=== PATIENT | male | born 1980 | race Caucasian/White ===

== ENCOUNTER 2023-02-03 22:06 | Inpatient (IN) | payer MEDICARE ==
[~2023-02-03] VITALS: Ht 167.6 cm; Wt 65.8 kg
[~2023-02-03 22:06] MED LIST: CELEBREX100 MG PO; METHOCARBAMOL500 MG PO; NAPROSYN500 MG PO
[2023-02-04] VITALS (12 sets, daily range): BP systolic 160–179; BP diastolic 80–108; PULSE 101–110; RESP 18–21; TEMP 98–98.2; O2SAT 98–100
[2023-02-04 00:07] LABS: BASOPHILS # (AUTO) 0.1 (0.0-0.1); BASOPHILS % 0.7 % (0.0-1.0); EOSINOPHILS # (AUTO) 0.3 (0.0-0.4); EOSINOPHILS % 2.6 % (0.0-6.0); HEMATOCRIT 32.8 % (38.2-49.6); HEMOGLOBIN 10.8 g/dL (14.0-18.0); LYMPHOCYTES # (AUTO) 1.8 (1.0-3.2); LYMPHOCYTES % 15.2 % (18.0-39.1); MEAN CORPUSCULAR HEMOGLOBIN 30.4 pg (28-32); MEAN CORPUSCULAR HGB CONC 32.9 g/dL (31-35); MEAN CORPUSCULAR VOLUME 92.4 fL (81-99); MONOCYTES % 8.3 % (4.4-11.3); NEUTROPHILS # (AUTO) 8.4 (2.1-6.9); NEUTROPHILS % 71.5 % (38.7-80.0); PLATELET COUNT 268 x10e3/uL (140-360); RED BLOOD COUNT 3.55 x10e6/uL (4.3-5.7); RED CELL DISTRIBUTION WIDTH 13.2 % (11.7-14.4)
[2023-02-04 00:21] LABS: ANION GAP 18.2 mmol/L (8-16); CALCIUM 12.2 mg/dL (8.4-10.2); CREATININE, SERUM 0.87 mg/dL (0.72-1.25); POTASSIUM 3.2 mmol/L (3.5-5.1)
[2023-02-04] MEDS ORDERED: ONDANSETRON HCL INJ 2MG/ML 2ML 2 MG/ML VIAL IV STA (00:44)
[2023-02-04] MEDS ORDERED: Morphine 4mg INJECTION 4 MG/ML INJ IV ONE (00:45)
[2023-02-04] MEDS: SODIUM CHLORIDE 0.9% 1000ML 1,000 ML IV SCH ×3 (00:55→13:14)
[2023-02-04 06:28] LABS: BASOPHILS # (AUTO) 0.1 (0.0-0.1); BASOPHILS % 0.7 % (0.0-1.0); EOSINOPHILS # (AUTO) 0.3 (0.0-0.4); EOSINOPHILS % 2.4 % (0.0-6.0); HEMOGLOBIN 10.2 g/dL (14.0-18.0); MEAN CORPUSCULAR HEMOGLOBIN 30.5 pg (28-32); MEAN CORPUSCULAR HGB CONC 32.9 g/dL (31-35); MEAN CORPUSCULAR VOLUME 92.8 fL (81-99); MONOCYTES # (AUTO) 0.9 (0.2-0.8); MONOCYTES % 8.4 % (4.4-11.3); NEUTROPHILS # (AUTO) 7.6 (2.1-6.9); PLATELET COUNT 251 x10e3/uL (140-360); RED BLOOD COUNT 3.34 x10e6/uL (4.3-5.7); RED CELL DISTRIBUTION WIDTH 13.2 % (11.7-14.4)
[2023-02-04 06:55] LABS: CALCIUM 11.4 mg/dL (8.4-10.2); CREATININE, SERUM 0.83 mg/dL (0.72-1.25)
[2023-02-04] MEDS ORDERED: DIPHENHYDRAMINE HCL INJ 50 MG/ML VIAL IV PRN (09:45)
[2023-02-04] MEDS ORDERED: ONDANSETRON HCL INJ 2MG/ML 2ML 2 MG/ML VIAL IV PRN (09:45)
[2023-02-04] MEDS ORDERED: DOCUSATE SODIUM 100 MG CAP PO PRN (09:45)
[2023-02-04] MEDS: ACETAMINOPHEN 325 MG TAB PO PRN (10:06)
[2023-02-04] MEDS: POTASSIUM CHLORIDE 20 MEQ TAB CR PO PRN (10:07)
[2023-02-04] MEDS ORDERED: BISACODYL 10 MG SUPP PR ONE (10:30)
[2023-02-04] MEDS ORDERED: LACTULOSE SYRUP 20 GM/30 ML UDC PO ONE (10:30)
[2023-02-04] MEDS: KETOROLAC TROMETHAMINE 30 MG/ML VIAL IV PRN (14:20)
[2023-02-04] MEDS: HYDRALAZINE HCL 20 MG/ML VIAL IV PRN (17:08)
[2023-02-04] MEDS ORDERED: CITRATE OF MAGNESIA 300ML BOTTLE PO ONE (17:15)
[2023-02-04] MEDS: METOPROLOL TARTRATE INJ 1 MG/ML VIAL IV PRN (22:55)
[2023-02-05] VITALS (8 sets, daily range): BP systolic 118–178; BP diastolic 88–104; PULSE 76–106; RESP 17–21; TEMP 97.9–99.2; O2SAT 96–100
[2023-02-05] MEDS: SODIUM CHLORIDE 0.9% 1000ML 1,000 ML IV SCH ×3 (01:12→16:15)
[2023-02-05] MEDS: METOPROLOL TARTRATE INJ 1 MG/ML VIAL IV PRN (06:00)
[2023-02-05] MEDS ORDERED: ONDANSETRON HCL 4 MG ORAL DISINTEGRATING TAB PO PRN (12:45)
[2023-02-05] MEDS ORDERED: CITRATE OF MAGNESIA 300ML BOTTLE PO ONE (16:00)
[2023-02-05] MEDS: KETOROLAC TROMETHAMINE 30 MG/ML VIAL IV PRN ×3 (16:16→22:24)
[2023-02-05] MEDS: CLONIDINE HCL 0.1 MG TAB PO PRN (20:46)
[2023-02-05] MEDS: ACETAMINOPHEN 325 MG TAB PO PRN (21:03)
[2023-02-05] MEDS ORDERED: MINERAL OIL 132 ML BTL PR ONE (21:30)
[2023-02-05] MEDS ORDERED: MELATONIN 5 MG TABLET PO PRN (22:00)
[2023-02-06] VITALS (8 sets, daily range): BP systolic 154–184; BP diastolic 97–126; PULSE 97–112; RESP 16–20; TEMP 98–98.6; O2SAT 97–100
[2023-02-06] MEDS ORDERED: MAGNESIUM HYDROXIDE 30 ML UDC PO STA (01:13)
[2023-02-06] MEDS: SODIUM CHLORIDE 0.9% 1000ML 1,000 ML IV SCH ×3 (01:14→16:35)
[2023-02-06] MEDS: CLONIDINE HCL 0.1 MG TAB PO PRN ×3 (01:30→23:18)
[2023-02-06] MEDS: LACTULOSE SYRUP 20 GM/30 ML UDC PO SCH ×4 (02:21→08:23)
[2023-02-06] MEDS: KETOROLAC TROMETHAMINE 30 MG/ML VIAL IV PRN ×2 (02:30→12:35)
[2023-02-06] MEDS: POTASSIUM CHLORIDE 20 MEQ TAB CR PO PRN (02:31)
[2023-02-06 06:16] LABS: BASOPHILS # (AUTO) 0.1 (0.0-0.1); BASOPHILS % 0.8 % (0.0-1.0); EOSINOPHILS # (AUTO) 0.2 (0.0-0.4); EOSINOPHILS % 1.5 % (0.0-6.0); HEMATOCRIT 35.8 % (38.2-49.6); HEMOGLOBIN 11.9 g/dL (14.0-18.0); LYMPHOCYTES # (AUTO) 1.7 (1.0-3.2); LYMPHOCYTES % 16.2 % (18.0-39.1); MEAN CORPUSCULAR HEMOGLOBIN 30.7 pg (28-32); MEAN CORPUSCULAR HGB CONC 33.2 g/dL (31-35); MEAN CORPUSCULAR VOLUME 92.5 fL (81-99); MONOCYTES # (AUTO) 0.8 (0.2-0.8); MONOCYTES % 7.6 % (4.4-11.3); NEUTROPHILS # (AUTO) 7.4 (2.1-6.9); NEUTROPHILS % 72.3 % (38.7-80.0); PLATELET COUNT 313 x10e3/uL (140-360); RED BLOOD COUNT 3.87 x10e6/uL (4.3-5.7); RED CELL DISTRIBUTION WIDTH 13.2 % (11.7-14.4)
[2023-02-06 06:42] LABS: ALBUMIN 4.3 g/dL (3.5-5.0); ALBUMIN/GLOBULIN RATIO 1.3 (0.8-2.0); ANION GAP 18.6 mmol/L (8-16); CALCIUM 12.4 mg/dL (8.4-10.2); CREATININE, SERUM 1.11 mg/dL (0.72-1.25); POTASSIUM 3.6 mmol/L (3.5-5.1)
[2023-02-06 07:16] LABS: THYROID STIMULATING HORMONE 1.579 uIU/mL (0.350-4.940)
[2023-02-06] MEDS: METOPROLOL TARTRATE INJ 1 MG/ML VIAL IV PRN ×2 (10:13→23:19)
[2023-02-06] MEDS ORDERED: BISACODYL 10 MG SUPP PR ONE (12:15)
[2023-02-06] MEDS ORDERED: LACTULOSE SYRUP 20 GM/30 ML UDC PO ONE (21:45)
[2023-02-07] VITALS: BP 187/116; PULSE 115; RESP 18; TEMP 98.2; O2SAT 99
[2023-02-07] MEDS ORDERED: LACTULOSE SYRUP 20 GM/30 ML UDC PO SCH
[2023-02-07] MEDS: SODIUM CHLORIDE 0.9% 1000ML 1,000 ML IV SCH
[2023-02-07 02:09] LABS: BASOPHILS % 0.3 % (0.0-1.0); EOSINOPHILS % 0.3 % (0.0-6.0); HEMATOCRIT 33.2 % (38.2-49.6); HEMOGLOBIN 10.8 g/dL (14.0-18.0); LYMPHOCYTES # (AUTO) 1.3 (1.0-3.2); LYMPHOCYTES % 8.2 % (18.0-39.1); MEAN CORPUSCULAR HEMOGLOBIN 30.3 pg (28-32); MEAN CORPUSCULAR HGB CONC 32.5 g/dL (31-35); MONOCYTES % 6.5 % (4.4-11.3); NEUTROPHILS # (AUTO) 13.4 (2.1-6.9); NEUTROPHILS % 83.9 % (38.7-80.0); PLATELET COUNT 260 x10e3/uL (140-360); RED BLOOD COUNT 3.57 x10e6/uL (4.3-5.7); RED CELL DISTRIBUTION WIDTH 13.1 % (11.7-14.4)
[2023-02-07 02:29] LABS: ALBUMIN/GLOBULIN RATIO 1.3 (0.8-2.0); ANION GAP 16.3 mmol/L (8-16); CALCIUM 11.7 mg/dL (8.4-10.2); CREATININE, SERUM 1.07 mg/dL (0.72-1.25); POTASSIUM 4.3 mmol/L (3.5-5.1)
[2023-02-07] MEDS: HYDRALAZINE HCL 20 MG/ML VIAL IV PRN (02:56)
[2023-02-07 04:00] VITALS: BP 147/87; PULSE 105; RESP 19; TEMP 98.7; O2SAT 92
[2023-02-07 06:31] LABS: CALCIUM 11.2 mg/dL (8.4-10.2); CREATININE, SERUM 0.9 mg/dL (0.72-1.25)
[2023-02-07 06:33] LABS: BASOPHILS # (AUTO) 0.1 (0.0-0.1); BASOPHILS % 0.3 % (0.0-1.0); EOSINOPHILS # (AUTO) 0.1 (0.0-0.4); EOSINOPHILS % 0.4 % (0.0-6.0); HEMATOCRIT 36.2 % (38.2-49.6); HEMOGLOBIN 11.7 g/dL (14.0-18.0); LYMPHOCYTES # (AUTO) 1.4 (1.0-3.2); LYMPHOCYTES % 9.1 % (18.0-39.1); MEAN CORPUSCULAR HEMOGLOBIN 30.5 pg (28-32); MEAN CORPUSCULAR HGB CONC 32.3 g/dL (31-35); MEAN CORPUSCULAR VOLUME 94.5 fL (81-99); MONOCYTES # (AUTO) 0.8 (0.2-0.8); MONOCYTES % 5.6 % (4.4-11.3); NEUTROPHILS # (AUTO) 12.6 (2.1-6.9); NEUTROPHILS % 83.6 % (38.7-80.0); PLATELET COUNT 281 x10e3/uL (140-360); RED BLOOD COUNT 3.83 x10e6/uL (4.3-5.7); RED CELL DISTRIBUTION WIDTH 13.2 % (11.7-14.4)
== END 2023-02-07 08:44 | disposition left against medical advice (07) | DRG 392 ==
LOC: EDBD 22:09 → ER 22:09 → ERHOLD 02-04 00:14 → MED/SURG3 02-04 02:53 → OBSVTOIN 02-04 10:57
PROVIDERS: ADMIT Internal Medicine; ATTEND Internal Medicine
DX: K59.00 Constipation, unspecified (principal); G12.21 Amyotrophic lateral sclerosis; F17.210 Nicotine dependence, cigarettes, uncomplicated; R33.9 Retention of urine, unspecified; R00.0 Tachycardia, unspecified; D50.9 Iron deficiency anemia, unspecified; N31.9 Neuromuscular dysfunction of bladder, unspecified; D72.829 Elevated white blood cell count, unspecified; E87.6 Hypokalemia; E83.52 Hypercalcemia; Z99.3 Dependence on wheelchair; Z74.01 Bed confinement status; Z20.822 Contact with and (suspected) exposure to COVID-19; Z53.29 Procedure and treatment not carried out because of patient's decision for other reasons
CPT/HCPCS: 36415; 71046; 74018; 74019; 74176; 80048; 80053; 82607; 82746; 83540; 83970; 84443; 84466; 84550; 85025; 85045; 99284; J1885; J2270; J2405; J7030; Q0162